=== PATIENT | male | born 1940 | race Caucasian/White ===

== ENCOUNTER 2022-03-06 21:20 | Emergency (ER) | payer MEDICARE, BC ==
[~2022-03-06] VITALS: Ht 170.2 cm; Wt 65.8 kg
--- NOTE | 2022-03-06 21:20 | NUR ---
Dr. Malagon at bedside for MSE.
[2022-03-06] MEDS ORDERED: IV NORMAL SALINE 1000 ML BAG IV ONE (21:30)
--- NOTE | 2022-03-06 21:39 | NUR ---
Xray at bedside.
[2022-03-06 22:03] LABS: CARBON DIOXIDE 27 mmol/L (21-32); CHLORIDE 98 mmol/L (98-107); GLUCOSE 117 mg/dL (74-106); UREA NITROGEN, BLOOD 18 mg/dL (7-18)
[2022-03-06 22:04] LABS: HEMATOCRIT 27.2 % (36.7-47.1); MEAN CORPUSCULAR HEMOGLOBIN 34.1 uug (23.8-33.4); MEAN CORPUSCULAR VOLUME 97.6 fL (73.0-96.2); PLATELET COUNT (AUTO) 162 K/uL (152-348)
[2022-03-06] MEDS ORDERED: PIPERACILLIN/TAZOBACTAM/D5W 0 ML IV ONE (22:15)
[2022-03-06] MEDS ORDERED: VANCOMYCIN IV 0 ML ONE (22:15)
[2022-03-06] MEDS ORDERED: PIPERACILLIN SODIUM/TAZOBACTAM 3.375 G in IV DEXTROSE 5% 50 ML IV ONE (22:15)
[2022-03-06] MEDS ORDERED: VANCOMYCIN IV 1,000 MG in IV DEXTROSE 5% 250 ML IV ONE (22:15)
[2022-03-06 22:16] LABS: ALANINE AMINOTRANSFERASE 54 U/L (16-63); ALKALINE PHOSPHATASE 579 U/L (50-136); ASPARTATE AMINOTRANSFERASE 55 U/L (15-37); BILIRUBIN,DIRECT 0.8 mg/dL (0.0-0.2); BILIRUBIN,TOTAL 1.3 mg/dL (0.2-1.0); TOTAL PROTEIN, SERUM 8.1 g/dL (6.4-8.2)
[2022-03-06] MEDS ORDERED: ACETAMINOPHEN 325 MG TABLET ONE (22:17)
--- NOTE | 2022-03-06 22:25 | NUR ---
Patient does not wish to proceed with medical care recommended by Dr. Malagon. Patient given information related to possible complications, up to and including , which could occur as a result of leaving the hospital at this time. Patient verbalizes understanding of risks involved due to leaving against medical advice. Patient has signed AMA form.
[2022-03-06] MEDS ORDERED: ACETAMINOPHEN 325 MG TABLET PO ONE (22:30)
[2022-03-06 22:31] VITALS: BP 127/63
== END 2022-03-06 22:33 | disposition left against medical advice (07) ==
LOC: ER 21:22
DX: R50.9 Fever, unspecified (principal); C22.8 Malignant neoplasm of liver, primary, unspecified as to type; R00.0 Tachycardia, unspecified; Z79.899 Other long term (current) drug therapy; Z20.822 Contact with and (suspected) exposure to COVID-19
CPT/HCPCS: 36415; 71045; 80048; 80076; 83605; 84145; 84484; 85025; 85730; 87040 ×2; 87400; 87426; 93005; 99285; J7040; A4663; J2543; J3370